=== PATIENT | male | born 1970 | race Caucasian/White ===

== ENCOUNTER 2019-09-19 14:10 | Emergency (ER) | payer OTHER ==
[2019-09-19 15:11] LABS: ABSOLUTE BASOPHILS # (AUTO) 0.1 10^3/uL (0.0-0.2); ABSOLUTE EOSINOPHILS # (AUTO) 0.2 10^3/uL (0.0-0.6); ABSOLUTE MONOCYTES (AUTO) 0.5 10^3/uL (0.1-1.4); ABSOLUTE NEUT (AUTO) 4.2 10^3/uL (1.7-8.2); BASOPHILS % (AUTO) 0.8 % (0-2); EOSINOPHILS % (AUTO) 2.2 % (0-6); HEMATOCRIT 42.8 % (37.9-51.0); HEMOGLOBIN 14.8 g/dL (13.5-17.0); MEAN CORPUSCULAR HEMOGLOBIN 32.1 pg (27.0-33.4); MEAN CORPUSCULAR HGB CONC 34.5 g/dL (32.0-36.0); MEAN CORPUSCULAR VOLUME 93 fl (80-97); MONOCYTES % (AUTO) 6.4 % (3-13); PLATELET COUNT 123 10^3/uL (150-450); SEGMENTED NEUTROPHILS % (AUTO) 52.6 % (42-78); TOTAL CELLS COUNTED % (AUTO) 100 %
[2019-09-19 15:16] LABS: ALBUMIN 4.1 g/dL (3.5-5.0); ALKALINE PHOSPHATASE 87 U/L (38-126); ANION GAP 8 (5-19); ASPARTATE AMINO TRANSFERASE 66 U/L (17-59); BILIRUBIN,TOTAL 0.3 mg/dL (0.2-1.3); BLOOD UREA NITROGEN 6 mg/dL (7-20); CALCIUM 8.9 mg/dL (8.4-10.2); CARBON DIOXIDE 25 mmol/L (22-30); CHLORIDE 106 mmol/L (98-107); GLUCOSE 83 mg/dL (75-110); POTASSIUM 4.1 mmol/L (3.6-5.0)
[2019-09-19 15:17] LABS: ACETAMINOPHEN < 10 ug/mL (10-30); SALICYLATE < 1.0 mg/dL (2.0-20.0)
[2019-09-19 15:24] LABS: ALCOHOL 396 mg/dL (NONE DETECTED)
[2019-09-19 16:06] LABS: APPEARANCE,URINE CLEAR; BILIRUBIN,URINE NEGATIVE (NEGATIVE); COLOR,URINE STRAW; GLUCOSE, URINE NEGATIVE (NEGATIVE); KETONES,URINE NEGATIVE (NEGATIVE); LEUKOCYTE ESTERASE,URINE NEGATIVE (NEGATIVE); NITRITE,URINE NEGATIVE (NEGATIVE); PROTEIN,URINE NEGATIVE (NEGATIVE); URINE SPECIFIC GRAVITY 1.002; UROBILINOGEN,URINE NEGATIVE mg/dL (<2.0)
[2019-09-19 16:25] LABS: URINE AMPHETAMINES SCREEN NEGATIVE; URINE BARBITURATES SCREEN NEGATIVE; URINE BENZODIAZEPINES SCREEN NEGATIVE; URINE COCAINE SCREEN NEGATIVE; URINE MARIJUANA (THC) SCREEN NEGATIVE; URINE METHADONE SCREEN NEGATIVE; URINE PHENCYCLIDINE SCREEN NEGATIVE
--- NOTE | 2019-09-19 16:38 | ER Document Report ---
ED General - General Chief Complaint: Psych Problem Stated Complaint: SUICIDAL IDEATION Time Seen by Provider: 09/19/19 14:26 - HPI Notes: Chief complaint: Alcohol detox and suicidal ideation HPI: 48-year-old male with longstanding history of alcoholism recently released from [facility] now transported to this emergency department by EMS after they received a call for alcohol intoxication, request f or detox and suicidal ideation. Patient is from his . 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 He is recently been staying in this area with his daughter. He says he is drinking heavily again. He is having thoughts about hanging himself. He wanted to come to the emergency department in hopes of getting back into a detox facility. Patient has some chronic pain issues. States he is otherwise in generally good health. He is not able to quantify his alcohol intake but says he drinks "what ever he can get". Occasional use of cannabis. Denies any other type of drug abuse. Smokes about a pack of cigarettes per day. Presently denies auditory or visual hallucinations. Past Medical History - General Information source: Patient - Social History Smoking Status: Current Every Day Smoker Chew tobacco use (# tins/day): No Frequency of alcohol use: Heavy Drug Abuse: Marijuana Lives with: Family Family History: Reviewed & Not Pertinent Patient has suicidal ideation: No Patient has homicidal ideation: No - Medical History Medical History: Negative Review of Systems - Review of Systems Notes: Constitutional: Negative for fever. HENT: Negative for sore throat. Eyes: Negative for visual changes. Cardiovascular: Negative for chest pain. Respiratory: Negative for shortness of breath. Gastrointestinal: Negative for abdominal pain, vomiting or diarrhea. Genitourinary: Negative for dysuria. Musculoskeletal: Negative for back pain. Skin: Negative for rash. Neurological: Negative for headaches, weakness or numbness. 10 point ROS negative except as marked above and in HPI. Physical Exam - Vital signs Vitals: Temp Pulse Resp BP Pulse Ox 97.5 F 79 16 119/69 94 09/19/19 14:15 09/19/19 14:15 09/19/19 14:15 09/19/19 14:15 09/19/19 14:15 - Notes Notes: GENERAL: Middle-age male with very slurred speech and heavy odor of alcohol present. Sleepy but arousable. SKIN: Good turgor no rashes. HEAD: Normocephalic atraumatic. EYES: PERRLA. EOMI. Conjunctivae and sclerae clear. EARS: CANALS AND TMS CLEAR. NOSE: CLEAR. MOUTH: Moist mucosa. Good dentition. No stridor or edema. No drooling. NECK: Supple. No masses or thyromegaly. No adenopathy. Carotids 2+ without bruits. No JVD. BACK: Symmetrical without tenderness. CHEST: Respirations unlabored. Breath sounds clear and symmetrical. HEART: Regular rhythm. No murmur gallop or rub. ABDOMEN: Soft nontender without masses, organomegaly or rebound. Bowel sounds normally active. No bruits. GENITALIA: Deferred. EXTREMITIES: No edema. No calf tenderness. Cap refill less than 1.5 seconds. Dorsalis pedis and posterior tibial pulses 3+ and symmetrical. NEUROLOGICAL: GCS 1 14 (disorientation today). Sleepy but arousable. Oriented to place and month. Ataxic gait. Slurred speech. Cranial nerves II through XII intact. Sensorimotor normal. Normal tone. PSYCHIATRIC: Appropriate affect. Course - Re-evaluation Re-evalutation: 09/19/19 16:39 Patient is very acutely intoxicated with blood alcohol in excess of 350 at this time. He is however expressing suicidal ideation. At this time I will go to give him an IV banana bag and request consultation from behavioral service. He will be further evaluated after his alcohol comes down somewhat and will be kept under med hold at this time. - Vital Signs Vital signs: Temp Pulse Resp BP Pulse Ox 97.5 F 79 16 119/69 94 09/19/19 14:15 09/19/19 14:15 09/19/19 14:15 09/19/19 14:15 09/19/19 14:15 - Laboratory Result Diagrams: 09/19/19 14:30 09/19/19 14:30 Laboratory results interpreted by me: 09/19/19 09/19/19 14:30 14:30 RDW 15.0 H Plt Count 123 L BUN 6 L AST 66 H Salicylates < 1.0 L Acetaminophen < 10 L Serum Alcohol 396 H* Discharge - Discharge Clinical Impression: Suicidal ideation, Chronic alcoholism Alcohol intoxication Qualifiers: Complication of substance-induced condition: with unspecified complication Qualified Code(s): F10.929 - Alcohol use, unspecified with intoxication, unspecified Disposition: PSYCH HOSP/UNIT
[2019-09-19] MEDS ORDERED: LORAZEPAM 1 MG TABLET PO PRN (17:04)
[2019-09-19] MEDS ORDERED: NORMAL SALINE 1000 ML 1,000 ML with POTASSIUM CHLORIDE 20 MEQ, MAGNESIUM SULFATE 8 MEQ,... IV SCH ×5 (18:00)
[2019-09-19] MEDS: BUSPIRONE HCL 10 MG TABLET PO SCH (18:16)
[2019-09-19] MEDS: VENLAFAXINE HCL 37.5 MG CAP.SR.24H PO SCH (18:51)
--- NOTE | 2019-09-19 19:03 | PSYCHOLOGICAL NOTE ---
Psych Note - Psych Note Date seen by psych provider: 09/19/19 Time seen by psych provider: 14:15 Psych Note: Patient is a 48-year-old male who presents to ED via EMS with concerns of suicidal ideation. Patient reports "I feel like hurting myself." When asked to elaborate patient replied "I want to find a tall tree in a short rope." Patient reports his oldest daughter stopped the reported suicide attempt. When asked how the daughter knew he was going to attempt suicide, he responded that his daughter "knew my history." Patient reports a chronic history with substance use to include EtOH, heroin, meth, and cocaine. Patient reports over entering detox and substance abuse treatment over 40 times. Patient reports chronic pain related to spinal stenosis and a herniated disc. Patient reports a history of seizures with withdrawals. During the evaluation patient became irritable and verbally aggressive; however patient descalated with assistance and was then calm and cooperative with clinicians. Is note patient's blood alcohol content is 396. Patient was alert and oriented to person, place, circumstance, and situation. Mood was cooperative and affect was mood congruent and with full expression. Patient denies current suicidal ideation. Patient denies homicidal ideation. Patient denied current auditory /visual hallucinations and there was no evidence of delusional thought content. Thought processes were linear, rational, and organized. Conversational speech was within normal limits for rate, tone, and prosody. Eye contact was well maintained. Intellectual abilities were estimated within the average range. Attention and concentration was good, and insight, judgment, and impulse control was good. Medication recommendation by consulting psychiatrist: 1. Add Effexor 37.5MG, twice a day 2. Add Buspar 5MG, twice a day Therapeutic Intervention: Psycho-education on use/abuse of substances; discussed patient's substance abuse treatment and relapse; discussed mental health concerns such as feelings of shame and failure after relapse focus on health; patient was provided psychoeducation regarding appropriate medications to assist with the physiological and psychological aspects of addiction. Impression / Plan: Medication recommendations have been provided. Patient is not medically clear at this time as he requires medical intervention to maintain stabilization. Plan is for patient to voluntarily present to [facility] when he no longer needs medical intervention to maintain stabilization. Dr. Padgett was consulted on the care and management of this patient; attending physician is in agreement with recommendations and disposition.
--- NOTE | 2019-09-20 07:21 | EKG REPORT ---
SEVERITY:- NORMAL ECG - SINUS RHYTHM : Confirmed by: Brooklyn Mcguire 20-Sep-2019 07:19:59
[2019-09-20] MEDS: BUSPIRONE HCL 10 MG TABLET PO SCH (10:10)
[2019-09-20] MEDS: VENLAFAXINE HCL 37.5 MG CAP.SR.24H PO SCH (10:10)
[2019-09-20 14:28] VITALS: BP 154/85
--- NOTE | 2019-09-20 18:40 | PSYCHOLOGICAL NOTE ---
Psych Note - Psych Note Date seen by psych provider: 09/20/19 Time seen by psych provider: 12:45 Psych Note: Reason for Consult: Suicidal ideation/ Substance abuse Check in conducted with patient: Patient reports he is not struggling with any thoughts of harming himself or others. He reports he has no history of harming himself. He states he was in a 6 month program for his alcoholism with [facility]. After graduating from the program, he came to the local area to help his daughter. He reports as soon as he arrived he started drinking and has not stopped f or the last 2 weeks. He states he would like assistance with detox and obtaining/maintaining sobriety. He reports he is glad that he came in "I am just glad that I am not to far gone before coming in this time....Instead of months or even years of drinking again." He disclosed that he is able to return to his daughter's home after detox. He reports that it has been difficult because all his support meets have been canceled due to COVID. His mood is currently euthymic with congruent affect. Patient is eating during evaluation. Medication recommendation by consulting psychiatrist: 1. Add Effexor 37.5MG, twice a day 2. Add Buspar 5MG, twice a day Impression/Plan: Patient is cleared from acute psychiatric services. He is no longer under the influence and is requesting assistance with detox. Patient denies anything thoughts of wanting to harm himself, and states he has no history of engaging in self harm. He confirms he would like assistance going to [facility] voluntarily and provides consent for the behavioral health team to coordinate. A voluntary bed is secured by the behavioral health team. The patient is encouraged to follow through with this voluntary placement. Patient demonstrated good insight on why his last attempt was unsuccessful (ie no outpatient support from professional or peer based due to COVID). He did not attempt to up online services and confirm he will try online services this time. Dr. Padgett was consulted on the care and management of this patient; attending physician is in agreement with recommendations and disposition.
== END 2019-09-20 14:47 | disposition home or self-care (01) ==
LOC: ER 14:10
DX: F10.229 Alcohol dependence with intoxication, unspecified (principal); Y90.8 Blood alcohol level of 240 mg/100 ml or more; R45.851 Suicidal ideations; F17.210 Nicotine dependence, cigarettes, uncomplicated; F12.10 Cannabis abuse, uncomplicated
CPT/HCPCS: 93005; 99285; 96365; 96366; 36415; 80307 ×4; 85025; 80053; 81001; 93010; J3490 ×3; J3475; J3480; J3411; J7030

== ENCOUNTER 2019-12-07 14:09 | Emergency (ER) | payer OTHER ==
[2019-12-07 14:22] VITALS: BP 157/99
--- NOTE | 2019-12-07 14:30 | ER Document Report ---
ED Medical Screen (RME) - General Chief Complaint: Back Pain Stated Complaint: BACK PAIN Time Seen by Provider: 12/07/19 14:22 Mode of Arrival: Wheelchair Information source: Patient Notes: HPI; 49-year-old male with history of chronic back and neck pain presents to the emergency room with worsening pain for the past week. States the pain is gotten so severe that he is unable to walk. States he supposed be taking Cymbalta which he stopped 5 days ago. States his physician in [place] told him that he cannot stop Cymbalta without weaning off of it. Patient states he did get a new prescription today has only taken 1 dose. Patient states he has been drinking heavily over the past several days to help alleviate the pain. States the pain is gotten worse is radiating down his right leg. He denies any saddle anesthesia, no loss control of her bowels or bladder. PE: Alert and oriented x3. Moderate distress noted. Lungs: Clear to auscultation without rales, rhonchi, wheezes. Heart: Regular rate rhythm without murmurs, rubs, gallops. Patient would not allow me to examine his back in triage. I have greeted and performed a rapid initial assessment of this patient. A comprehensive ED assessment and evaluation of the patient, analysis of test results and completion of the medical decision making process will be conducted by additional ED providers. I have specifically instructed the patient or family members with the patient to immediately return to any nursing staff should anything change in the patient's condition or with their chief complaint. TRAVEL OUTSIDE OF THE [place] IN LAST 30 DAYS: No - Related Data Allergies/Adverse Reactions: No Known Allergies Allergy (Verified 12/07/19 14:22) Physical Exam - Vital signs Vitals: Temp Pulse Resp BP Pulse Ox 98.5 F 107 H 20 157/99 H 95 12/07/19 14:17 12/07/19 14:17 12/07/19 14:17 12/07/19 14:17 12/07/19 14:17 Course - Vital Signs Vital signs: Temp Pulse Resp BP Pulse Ox 98.5 F 107 H 20 157/99 H 95 12/07/19 14:17 12/07/19 14:17 12/07/19 14:17 12/07/19 14:17 12/07/19 14:17
--- NOTE | 2019-12-07 14:54 | ER Document Report ---
ED General Pain - General Chief Complaint: ETOH Abuse Stated Complaint: BACK PAIN Time Seen by Provider: 12/07/19 14:22 Mode of Arrival: Wheelchair Notes: Chronic back pain worse for last few days and stopping Cymbalta radiating down both legs. Not past the knee. No numbness or tingling. No saddle anesthesia or incontinence. No IV drug use no fever. History of alcoholism. Has been drinking earlier today. No withdrawal symptoms no SI no HI. Also wants to go to detox. Patient has been verbally abusive to multiple staff members threatening to physically assault in his room and surrounded by police officers on my arrival. TRAVEL OUTSIDE OF THE [place] IN LAST 30 DAYS: No - Related Data Allergies/Adverse Reactions: No Known Allergies Allergy (Verified 12/07/19 14:22) Past Medical History - General Information source: Patient - Social History Smoking Status: Current Every Day Smoker Chew tobacco use (# tins/day): No Smoking Education Provided: Yes - The patient ED visit today was directly related to their abuse of tobacco. Frequency of alcohol use: Heavy Drug Abuse: Marijuana Family History: Reviewed & Not Pertinent Patient has homicidal ideation: No Review of Systems - Review of Systems Notes: Remind REVIEW OF SYSTEMS GEN: Denies fever, chills, weight loss ENT: Denies sore throat, nasal discharge, ear pain EYES: Denies blurry vision, eye pain, discharge CV: Denies chest pain, palpitations, edema RESP: Denies cough, shortness of breath, wheezing GI: Denies abdominal pain, nausea, vomiting, diarrhea MSK: Back pain SKIN: Denies rash, skin lesions LYMPH: Denies swollen glands/lymph nodes NEURO: Denies headache, focal weakness or numbness, dizziness PSYCH: Alcoholism PHYSICAL EXAMINATION General: No acute distress, well-nourished Head: Atraumatic, normocephalic ENT: Mouth normal, oropharynx moist, no exudates or tonsillar enlargement Eyes: Conjunctiva normal, pupils equal, lids normal Neck: No JVD, supple, no guarding CVS: Normal rate, regular rhythm, no murmurs Resp: No resp distress, equal and normal breath sounds bilaterally GI: Nondistended, soft, no tenderness to palpation, no rebound or guarding Ext: No deformities, no edema, normal range of motion in upper and lower ext Back: No CVA or midline TTP Skin: No rash, warm Lymphatic: No lymphadeopathy noted Neuro: Awake, alert. Face symmetric. GCS 15. Strength and sensation in both feet. Physical Exam - Vital signs Vitals: Temp Pulse Resp BP Pulse Ox 98.5 F 107 H 20 157/99 H 95 12/07/19 14:17 12/07/19 14:17 12/07/19 14:17 12/07/19 14:17 12/07/19 14:17 Course - Re-evaluation Re-evalutation: 12/07/19 14:54 Acute on chronic back pain secondary medication noncompliance. Alcoholism without signs of acute intoxication or withdrawal. Judgment is intact nonsuicidal. Patient presents a danger to staff has no medical emergency and will be discharged for outpatient detox. Does need but not be criteria for IVC or inpatient treatment. Discharge I have discussed with the patient there likely diagnosis, aftercare plan, follow-up plans and my usual and customary r eturn precautions. They verbalized understanding of this. - Vital Signs Vital signs: Temp Pulse Resp BP Pulse Ox 98.5 F 107 H 20 157/99 H 95 12/07/19 14:17 12/07/19 14:17 12/07/19 14:17 12/07/19 14:17 12/07/19 14:17 Discharge - Discharge Clinical Impression: Chronic back pain Qualifiers: Back pain location: low back pain Back pain laterality: unspecified Sciatica presence: unspecified whether sciatica present Qualified Code(s): M54.5 - Low back pain; G89.29 - Other chronic pain Condition: Good Disposition: HOME, SELF-CARE Instructions: Ice Packs ([facility]), Low Back Pain ([facility]) Additional Instructions: Please follow-up with 1 of our community resources such as [facility] or [facility] Referrals: [facility] [Outside] - Follow up as needed
[2019-12-07 14:55] LABS: APPEARANCE,URINE CLEAR; BILIRUBIN,URINE NEGATIVE (NEGATIVE); COLOR,URINE COLORLESS; GLUCOSE, URINE NEGATIVE (NEGATIVE); KETONES,URINE NEGATIVE (NEGATIVE); LEUKOCYTE ESTERASE,URINE NEGATIVE (NEGATIVE); NITRITE,URINE NEGATIVE (NEGATIVE); PROTEIN,URINE NEGATIVE (NEGATIVE); URINE SPECIFIC GRAVITY 1.002; UROBILINOGEN,URINE NEGATIVE mg/dL (<2.0)
[2019-12-07 16:05] LABS: URINE AMPHETAMINES SCREEN NEGATIVE; URINE BARBITURATES SCREEN NEGATIVE; URINE BENZODIAZEPINES SCREEN NEGATIVE; URINE COCAINE SCREEN NEGATIVE; URINE METHADONE SCREEN NEGATIVE; URINE PHENCYCLIDINE SCREEN NEGATIVE
[2019-12-07 16:06] LABS: URINE MARIJUANA (THC) SCREEN UNCONFIRMED POSITIVE
== END 2019-12-07 15:06 | disposition home or self-care (01) ==
LOC: ER 14:09
DX: G89.29 Other chronic pain (principal); M54.5 Low back pain; T43.216A Underdosing of selective serotonin and norepinephrine reuptake inhibitors, initial encounter; Z91.14 Patient's other noncompliance with medication regimen; F10.20 Alcohol dependence, uncomplicated; F17.200 Nicotine dependence, unspecified, uncomplicated; F12.10 Cannabis abuse, uncomplicated
CPT/HCPCS: 80307; 81001; 99283

== ENCOUNTER 2020-06-05 11:59 | Emergency (ER) | payer SELFPAY ==
--- NOTE | 2020-06-05 13:06 | ER Document Report ---
ED Medical Screen (RME) - General Chief Complaint: Medical Clearance Stated Complaint: MEDICAL CLEARANCE Time Seen by Provider: 06/05/20 12:57 Mode of Arrival: Ambulatory Information source: Patient Notes: HPI; 49-year-old male presents to the emergency room requesting medical clearance to go to [facility] for alcohol abuse. Patient states he drinks anywhere from 12-24 beers a day. Last drink around 8:30 this morning. PE: Alert and oriented x3. Lungs: Clear to auscultation without rales, rhonchi, wheezes. Heart: Tachycardic without murmurs, rubs, gallops. I have greeted and performed a rapid initial assessment of this patient. A comprehensive ED assessment and evaluation of the patient, analysis of test results and completion of the medical decision making process will be conducted by additional ED providers. I have specifically instructed the patient or family members with the patient to immediately return to any nursing staff should anything change in the patient's condition or with their chief complaint. TRAVEL OUTSIDE OF THE [place] IN LAST 30 DAYS: No - Related Data Allergies/Adverse Reactions: No Known Allergies Allergy (Verified 06/05/20 12:51) Past Medical History - Social History Frequency of alcohol use: Heavy Physical Exam - Vital signs Vitals: Temp Pulse Resp BP Pulse Ox 98.6 F 106 H 18 130/93 H 98 06/05/20 12:32 06/05/20 12:32 06/05/20 12:32 06/05/20 12:32 06/05/20 12:32 Course - Vital Signs Vital signs: Temp Pulse Resp BP Pulse Ox 98.6 F 106 H 18 130/93 H 98 06/05/20 12:32 06/05/20 12:32 06/05/20 12:32 06/05/20 12:32 06/05/20 12:32
[2020-06-05 14:43] LABS: APPEARANCE,URINE CLEAR; BILIRUBIN,URINE NEGATIVE (NEGATIVE); COLOR,URINE STRAW; GLUCOSE, URINE NEGATIVE (NEGATIVE); KETONES,URINE NEGATIVE (NEGATIVE); LEUKOCYTE ESTERASE,URINE NEGATIVE (NEGATIVE); NITRITE,URINE NEGATIVE (NEGATIVE); PROTEIN,URINE NEGATIVE (NEGATIVE); URINE SPECIFIC GRAVITY 1.003; UROBILINOGEN,URINE NEGATIVE mg/dL (<2.0)
[2020-06-05 15:16] LABS: ABSOLUTE BASOPHILS # (AUTO) 0.1 10^3/uL (0.0-0.2); ABSOLUTE EOSINOPHILS # (AUTO) 0.2 10^3/uL (0.0-0.6); ABSOLUTE LYMPHOCYTES (AUTO) 2.3 10^3/uL (0.5-4.7); ABSOLUTE MONOCYTES (AUTO) 0.6 10^3/uL (0.1-1.4); ABSOLUTE NEUT (AUTO) 3.1 10^3/uL (1.7-8.2); BASOPHILS % (AUTO) 1.9 % (0-2); EOSINOPHILS % (AUTO) 3.2 % (0-6); HEMATOCRIT 45.2 % (37.9-51.0); HEMOGLOBIN 15.3 g/dL (13.5-17.0); LYMPHOCYTES % (AUTO) 36.5 % (13-45); MEAN CORPUSCULAR HEMOGLOBIN 32.3 pg (27.0-33.4); MEAN CORPUSCULAR HGB CONC 33.8 g/dL (32.0-36.0); MEAN CORPUSCULAR VOLUME 96 fl (80-97); MONOCYTES % (AUTO) 9.5 % (3-13); PLATELET COUNT 143 10^3/uL (150-450); RED BLOOD COUNT 4.72 10^6/uL (4.35-5.55); RED CELL DISTRIBUTION WIDTH 13.7 % (11.5-14.0); SEGMENTED NEUTROPHILS % (AUTO) 48.9 % (42-78); TOTAL CELLS COUNTED % (AUTO) 100 %; WHITE BLOOD COUNT 6.3 10^3/uL (4.0-10.5)
[2020-06-05 15:35] LABS: ALBUMIN 4.7 g/dL (3.5-5.0); ALCOHOL 252 mg/dL (NONE DETECTED); ALKALINE PHOSPHATASE 80 U/L (38-126); ANION GAP 7 (5-19); ASPARTATE AMINO TRANSFERASE 133 U/L (17-59); BILIRUBIN,DIRECT 0.3 mg/dL (0.0-0.4); BILIRUBIN,TOTAL 0.5 mg/dL (0.2-1.3); BLOOD UREA NITROGEN 6 mg/dL (7-20); CALCIUM 9.5 mg/dL (8.4-10.2); CARBON DIOXIDE 31 mmol/L (22-30); CHLORIDE 102 mmol/L (98-107); GLUCOSE 95 mg/dL (75-110); POTASSIUM 4.8 mmol/L (3.6-5.0); TOTAL PROTEIN 8.2 g/dL (6.3-8.2)
[2020-06-05 15:36] LABS: ACETAMINOPHEN < 10 ug/mL (10-30); SALICYLATE < 1.0 mg/dL (2.0-20.0)
[2020-06-05 15:59] LABS: URINE AMPHETAMINES SCREEN NEGATIVE; URINE BARBITURATES SCREEN NEGATIVE; URINE BENZODIAZEPINES SCREEN NEGATIVE; URINE COCAINE SCREEN NEGATIVE; URINE METHADONE SCREEN NEGATIVE; URINE PHENCYCLIDINE SCREEN NEGATIVE
[2020-06-05 16:01] LABS: URINE MARIJUANA (THC) SCREEN UNCONFIRMED POSITIVE
--- NOTE | 2020-06-05 18:34 | ER Document Report ---
ED General - General Chief Complaint: Medical Clearance Stated Complaint: MEDICAL CLEARANCE Time Seen by Provider: 06/05/20 12:57 Mode of Arrival: Ambulatory TRAVEL OUTSIDE OF THE [place] IN LAST 30 DAYS: No - HPI Notes: 49-year-old male presents for medical clearance so that he may go to alcohol abuse treatment at [facility]. Patient states that he drinks anywhere from 12-24 beers per day, he last drink at 8:30 AM this morning. He reports that he did have a period of sobriety this summer after he went to [facility], however he has started drinking again, he states he is at the point where he needs to go back to rehab. He states he does also consume marijuana. He otherwise denies complaints. - Related Data Allergies/Adverse Reactions: No Known Allergies Allergy (Verified 06/05/20 12:51) Past Medical History - General Information source: Patient - Social History Smoking Status: Current Every Day Smoker Frequency of alcohol use: Heavy Drug Abuse: Marijuana Family History: Reviewed & Not Pertinent Patient has homicidal ideation: No Review of Systems - Review of Systems Constitutional: No symptoms reported EENT: No symptoms reported Cardiovascular: No symptoms reported Respiratory: No symptoms reported Gastrointestinal: No symptoms reported Genitourinary: No symptoms reported Male Genitourinary: No symptoms reported Musculoskeletal: No symptoms reported Skin: No symptoms reported Hematologic/Lymphatic: No symptoms reported Neurological/Psychological: No symptoms reported Physical Exam - Vital signs Vitals: Temp Pulse Resp BP Pulse Ox 98.6 F 106 H 18 130/93 H 98 06/05/20 12:32 06/05/20 12:32 06/05/20 12:32 06/05/20 12:32 06/05/20 12:32 - General General appearance: Appears well, Alert In distress: None - HEENT Head: Normocephalic, Atraumatic Extraocular movements intact: Yes Pupils: PERRL - Respiratory Breath sounds: Normal - Cardiovascular Rhythm: Regular Heart sounds: Normal auscultation - Abdominal Tenderness: Nontender - Extremities General upper extremity: Normal ROM General lower extremity: Normal ROM - Neurological Neuro grossly intact: Yes Cognition: Normal Orientation: AAOx4 - Psychological Associated symptoms: Normal affect - Skin Skin Temperature: Warm Course - Re-evaluation Re-evalutation: 49-year-old male history of alcohol abuse presented for medical clearance so he may go to [facility] for treatment. On exam he is alert and well-appearing, lungs are clear, abdomen is soft, no focal neuro deficits, appropriate mood and affect, he does not appear overtly intoxicated. He had a laboratory evaluation done from triage which is grossly unremarkable, his alcohol level is 252 which is appropriate to go at this time, additionally is drawn at 1500 so likely is further down trended. He at this point is medically clear. Nursing will reach out to [facility]. Stable at time of discharge. - Vital Signs Vital signs: Temp Pulse Resp BP Pulse Ox 98.6 F 106 H 18 130/93 H 98 06/05/20 12:32 06/05/20 12:32 06/05/20 12:32 06/05/20 12:32 06/05/20 12:32 - Laboratory Results Result Diagrams: 06/05/20 15:01 06/05/20 15:01 Laboratory Results Interpreted: 06/05/20 06/05/20 15:01 15:01 Plt Count 143 L Carbon Dioxide 31 H BUN 6 L AST 133 H ALT 82 H Salicylates < 1.0 L Acetaminophen < 10 L Critical Laboratory Results Reviewed: No Critical Results - Radiology Results Critical Radiology Results Reviewed: No Critical Results - EKG Interpretation by Me Additional EKG results interpreted by me: EKG is interpreted by me. Sinus rhythm, rate 84. Narrow QRS, QTC within normal limits. No ST segment elevation or depression. Discharge - Discharge Clinical Impression: Alcohol abuse Disposition: OTHER
[2020-06-05 20:07] VITALS: BP 126/78
--- NOTE | 2020-06-05 23:23 | EKG REPORT ---
SEVERITY:- NORMAL ECG - SINUS RHYTHM : Confirmed by: Brooklyn Mcguire 05-Jun-2020 23:23:12
== END 2020-06-05 19:10 | disposition other institution (70) ==
LOC: ER 11:59
DX: F10.10 Alcohol abuse, uncomplicated (principal); F17.200 Nicotine dependence, unspecified, uncomplicated
CPT/HCPCS: 36415; 80053; 80307; 81001; 85025; 93005; 93010; 99284